=== PATIENT | male | born 1960 | race Caucasian/White ===

== ENCOUNTER 2016-12-01 09:12 | Inpatient (IN) | payer MEDICARE ==
[~2016-12-01] VITALS: Ht 172.7 cm; Wt 95.3 kg
[2016-12-01] MEDS ORDERED: ASPIRIN 325 MG TABLET PO ONE (09:45)
--- NOTE | 2016-12-01 10:01 | RAD ---
Portable AP chest. History: Chest pain Portable AP view was taken of the chest. Lungs are clear. Heart is normal in size. There is no effusion. Impression: 1. No acute chest disease.
[2016-12-01 10:11] LABS: BASO # 0.1 x10^3/uL (0.0-0.2); BASO % 1 % (0-3); EOS % 3 % (0-3); HEMATOCRIT 44.1 % (39.0-53.0); HEMOGLOBIN 15.3 g/dL (13.0-17.5); LYMPH # 2.4 x10^3/uL (1.0-4.8); LYMPH % 45 % (24-48); MEAN CORPUSCULAR HEMOGLOBIN 32 pg (25-35); MEAN CORPUSCULAR HGB CONC 35 g/dL (31-37); MEAN CORPUSCULAR VOLUME 92 fL (79-100); MONO % 10 % (0-9); NEUT % 41 % (31-73); PLATELET COUNT 217 x10^3/uL (140-400); RED BLOOD COUNT 4.78 x10^6/uL (4.30-5.70); RED CELL DISTRIBUTION WIDTH 13.6 % (11.5-14.5); WHITE BLOOD COUNT 5.3 x10^3/uL (4.0-11.0)
[2016-12-01 10:19] LABS: CALCIUM 8.6 mg/dL (8.5-10.1); GFR 77.3; POTASSIUM 4.4 mmol/L (3.5-5.1)
[2016-12-01 10:23] LABS: PROTHROMBIN TIME PATIENT 12.7 SEC (11.7-14.0)
[2016-12-01 10:25] LABS: ALBUMIN 4.1 g/dL (3.4-5.0); ALBUMIN/GLOBULIN RATIO 1.5 (1.0-1.7); MAGNESIUM 2.2 mg/dL (1.8-2.4); TOTAL BILIRUBIN 0.5 mg/dL (0.2-1.0); TOTAL PROTEIN 6.9 g/dL (6.4-8.2)
--- NOTE | 2016-12-01 10:42 | EKG ---
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
[2016-12-01] MEDS ORDERED: MORPHINE SULFATE 4 MG/ML DISP.SYRIN. IV PRN (11:00)
[2016-12-01] MEDS ORDERED: ONDANSETRON PF 4 MG/2 ML VIAL. IV PRN (11:00)
[2016-12-01] MEDS ORDERED: ACETAMINOPHEN 325 MG TABLET. PO PRN (11:00)
[2016-12-01] MEDS ORDERED: NITROGLYCERIN SUBLINGUAL 0.4 MG BOTTLE OF 25. SL PRN (11:00)
[2016-12-01] MEDS ORDERED: ASPI-630 PO (12:00)
[2016-12-01] MEDS ORDERED: METO25TA9 PO (12:00)
[2016-12-01] MEDS ORDERED: OMEG1CAP6 PO (12:00)
[2016-12-01] MEDS ORDERED: LISI-338 PO (12:00)
[2016-12-01] MEDS ORDERED: CRESTOR40 MG PO (12:00)
[2016-12-01] MEDS ORDERED: PNEUMOCOCCAL VAX SCREEN BY RX. MC ONE (13:30)
[2016-12-01 13:32] VITALS: BP 108/68
[2016-12-01] MEDS ORDERED: PNEUMOC CONJ VACC 23-VALENT 0.5 ML VIAL. VAX IM ONE (13:45)
--- NOTE | 2016-12-01 14:50 | PHYS DOC ---
Past Medical History Past Medical History: CHF, High Cholesterol, Heart Disease, Hypertension, MS Additional Past Medical Histor: CARDIAC STENT Past Surgical History: Angioplasty Additional Past Surgical Histo: L WRIST, R LEG Additional Information: E-CIGS Alcohol Use: None Drug Use: None Adult General Chief Complaint Chief Complaint: CHEST PAIN HPI HPI Patient is a 56 year old male who presents with chest pain. 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 He states pain is left sided, feels like tightness, nonradiating, associated with shortness of breath & nausea , denies diaphoresis. He denies fevers/chills, cough, lower extremity pain/ swelling. He reports history of CAD s/p MS with cardiac stent placement, states symptoms not similar as he had primarily severe dyspnea with MS. He takes metoprolol & has chronically low heart rate. He has history of diabetes & is a former smoker, history of CAD in mother & maternal grandparents. PCP is Dr. 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 Review of Systems Review of Systems Constitutional: Denies fever or chills Eyes: Denies change in visual acuity HENT: Denies nasal congestion or sore throat Respiratory: Denies cough, reports shortness of breath Cardiovascular: Reports chest pain, denies edema GI: Reports nausea. Denies abdominal pain, vomiting, bloody stools or diarrhea Musculoskeletal: Denies back pain or joint pain Integument: Denies rash or skin lesions Neurologic: Denies headache, focal weakness or sensory changes Current Medications Current Medications Current Medications Medications (Trade) Dose Ordered Sig/[facility] Start Time Stop Time Status Last Admin Dose Admin Aspirin (Ozzie Aspirin) 325 mg 1X ONCE 12/01/16 09:45 12/01/16 10:06 DC 12/01/16 10:08 325 MG Allergies Allergies Allergies Coded Allergies Type Severity Reaction Last Updated Verified No Known Drug Allergies 12/01/16 No Physical Exam Physical Exam Constitutional: Well developed, well nourished, no acute distress, non-toxic appearance. HENT: Normocephalic, atraumatic, bilateral external ears normal, oropharynx moist, nose normal. Eyes: conjunctiva normal, no discharge. Neck: supple, no stridor. Cardiovascular: RRR, no murmurs, no edema. Lungs & Thorax: LCTAB, no wheezing, no respiratory distress. no reproducible tenderness with palpation over anterior chest wall. Abdomen: soft, nontender, nondistended. Skin: Warm, dry, no erythema, no rash. Back: No tenderness. Extremities: No tenderness, no edema. no calf tenderness or swelling. Neurologic: Alert and oriented X 3, no focal deficits noted. Psychologic: Affect normal, judgement normal, mood normal. Current Patient Data Vital Signs Vital Signs Date Time Temp Pulse Resp B/P (MAP) Pulse Ox O2 Delivery O2 Flow Rate FiO2 12/01/16 10:30 46 18 114/71 (85) 96 Room Air 12/01/16 09:32 98.1 98.1 Lab Values Laboratory Tests Test 12/01/16 09:44 White Blood Count 5.3 x10^3/uL (4.0-11.0) Red Blood Count 4.78 x10^6/uL (4.30-5.70) Hemoglobin 15.3 g/dL (13.0-17.5) Hematocrit 44.1 % (39.0-53.0) Mean Corpuscular Volume 92 fL (79-100) Mean Corpuscular Hemoglobin 32 pg (25-35) Mean Corpuscular Hemoglobin Concent 35 g/dL (31-37) Red Cell Distribution Width 13.6 % (11.5-14.5) Platelet Count 217 x10^3/uL (140-400) Neutrophils (%) (Auto) 41 % (31-73) Lymphocytes (%) (Auto) 45 % (24-48) Monocytes (%) (Auto) 10 % (0-9) H Eosinophils (%) (Auto) 3 % (0-3) Basophils (%) (Auto) 1 % (0-3) Neutrophils # (Auto) 2.2 x10^3uL (1.8-7.7) Lymphocytes # (Auto) 2.4 x10^3/uL (1.0-4.8) Monocytes # (Auto) 0.5 x10^3/uL (0.0-1.1) Eosinophils # (Auto) 0.1 x10^3/uL (0.0-0.7) Basophils # (Auto) 0.1 x10^3/uL (0.0-0.2) Prothrombin Time 12.7 SEC (11.7-14.0) Prothrombin Time INR 1.0 (0.8-1.1) PTT 31 SEC (24-38) Sodium Level 140 mmol/L (136-145) Potassium Level 4.4 mmol/L (3.5-5.1) Chloride Level 104 mmol/L (98-107) Carbon Dioxide Level 30 mmol/L (21-32) Anion Gap 6 (6-14) Blood Urea Nitrogen 19 mg/dL (8-26) Creatinine 1.0 mg/dL (0.7-1.3) Estimated GFR (Cockcroft-Gault) 77.3 BUN/Creatinine Ratio 19 (6-20) Glucose Level 100 mg/dL (70-99) H Calcium Level 8.6 mg/dL (8.5-10.1) Magnesium Level 2.2 mg/dL (1.8-2.4) Total Bilirubin 0.5 mg/dL (0.2-1.0) Aspartate Amino Transferase (AST) 26 U/L (15-37) Alanine Aminotransferase (ALT) 39 U/L (16-63) Alkaline Phosphatase 68 U/L (46-116) Troponin I Quantitative 0.022 ng/mL (0.000-0.055) JE-Bam-L-Type Natriuretic Peptide 24 pg/mL (0-124) Total Protein 6.9 g/dL (6.4-8.2) Albumin 4.1 g/dL (3.4-5.0) Albumin/Globulin Ratio 1.5 (1.0-1.7) Laboratory Tests 12/01/16 09:44 Laboratory Tests 12/01/16 09:44 EKG EKG interpreted by me: sinus bradycardia rate 44, no STEMI, T wave inversions without depression in leads 1 & aVL, normal intervals, no ectopy.[] Radiology/Procedures Radiology/Procedures PROCEDURE: CHEST AP ONLY Portable AP chest. History: Chest pain Portable AP view was taken of the chest. Lungs are clear. Heart is normal in size. There is no effusion. Impression: 1. No acute chest disease. DICTATED and SIGNED BY: JANET MILLER MD DATE: 12/01/16 0958[] Course & Med Decision Making Course & Med Decision Making Pertinent Labs and Imaging studies reviewed. (See chart for details) The patient presents with chest pain. Gave aspirin upon arrival; he declined pain medication. Obtained labs, EKG, CXR. Troponin negative but not undetectable, no STEMI on EKG. With personal & family history of CAD with risk factors for ACS, will admit for further evaluation & treatment. He agrees with plan of care. Discussed with Dr. Naylor who agrees to admit to inpatient status , on behalf of Dr. Thompson. The patient is admitted in stable condition. Dragon Disclaimer Dragon Disclaimer This electronic medical record was generated, in whole or in part, using a voice recognition dictation system. Departure Departure Impression: Primary Impression: Chest pain Disposition: ADMITTED INPATIENT Admitting Physician: Merlyn Thompson Condition: STABLE Referrals: MERLYN THOMPSON MD (PCP) FUENTES CALABRESE MD Dec 01, 2016 14:50
[2016-12-01 15:00] VITALS: BP 99/65
[2016-12-01] MEDS ORDERED: HEPARIN 25,000UTS/500ML PREMIX 500 ML IV PRN (15:15)
--- NOTE | 2016-12-01 15:26 | PDOC2 ---
CONSULT Date of Consult Date of Consult DATE: 12/01/16 TIME: 15:20 Reason for Consult Reason for Consult: chest pain Referring Physician Referring Physician: Dr. Thompson Identification/Chief Complaint Chief Complaint chest pain Problems: Source Source: Patient History of Present Illness Reason for Visit: The patient is a 56-year-old male who developed episodes of chest discomfort this morning. It was described as a pressure-like feeling in his chest. It has improved since then. He does have a history of a previous myocardial infarction and stent placement. He is also treated for hypertension and hyperlipidemia. Initial troponin is 0.022. EKG shows a sinus bradycardia with no acute ischemic EKG changes. Chest x-ray is clear. Past Medical History Cardiovascular: CHF, HTN, MD Past Surgical History Past Surgical History: Other (coronary stent) Family History Family History: Coronary Artery Disease Social History No Current Medications Current Medications Current Medications Aspirin (Ozzie Aspirin) 325 mg 1X ONCE PO Last administered on 12/01/16t 10:08 ; Start 12/01/16 at 09:45; Stop 12/01/16 at 10:06; Status DC Ondansetron HCl (Zofran) 4 mg PRN Q8HRS PRN IV NAUSEA/VOMITING; Start 12/01/16 at 11:00; Stop 12/02/16 at 10:59 Morphine Sulfate 4 mg PRN Q2HR PRN IV PAIN; Start 12/01/16 at 11:00; Stop 12/02 at 10:59 Acetaminophen (Tylenol) 650 mg PRN Q4HRS PRN PO FEVER; Start 12/01/16 at 11:00 ; Stop 12/02/16 at 10:59 Nitroglycerin (Nitrostat) 0.4 mg PRN Q5MIN PRN SL CHEST PAIN; Start 12/01/16 at 11:00; Stop 12/02/16 at 10:59 Pneumococcal Polyvalent Vaccine (Do NOT chart on this placeholder) 1 each 1X ONCE MC ; Start 12/01/16 at 13:30; Stop 12/01/16 at 13:31; Status UNV Pneumococcal Polyvalent Vaccine (Pneumovax 23) 0.5 ml ONCE ONCE VAX IM ; Start 12/01/16 at 13:45; Stop 12/01/16 at 13:46; Status DC Active Scripts Active Reported Aspirin 81 Mg Tab.chew 81 Mg PO DAILY Fish Oil 1,000 Mg Capsule ([place]-3 Fatty Acids/Fish Oil) 1 Each Capsule 1 Each PO DAILY Metoprolol Succinate ( Xl ) (Metoprolol Succinate) 25 Mg Tab.er.24h 25 Mg PO DAILY Crestor (Rosuvastatin Calcium) 40 Mg Tablet 1 Tab PO DAILY Lisinopril 5 Mg Tablet 5 Mg PO DAILY Allergies Allergies: Coded Allergies: No Known Drug Allergies (Unverified , 12/01/16) ROS Cardiovascular: yes Chest Pain Physical Exam General: mild distress HEENT: Atraumatic Lungs: Clear to auscultation Heart: Regular rate Abdomen: Normal bowel sounds Vitals VITALS Vital Signs Date Time Temp Pulse Resp B/P (MAP) Pulse Ox O2 Delivery O2 Flow Rate FiO2 12/01/16 13:32 45 16 108/68 (81) Room Air 12/01/16 11:30 95 12/01/16 09:32 98.1 98.1 Labs Labs Laboratory Tests Test 12/01/16 09:44 White Blood Count 5.3 x10^3/uL (4.0-11.0) Red Blood Count 4.78 x10^6/uL (4.30-5.70) Hemoglobin 15.3 g/dL (13.0-17.5) Hematocrit 44.1 % (39.0-53.0) Mean Corpuscular Volume 92 fL (79-100) Mean Corpuscular Hemoglobin 32 pg (25-35) Mean Corpuscular Hemoglobin Concent 35 g/dL (31-37) Red Cell Distribution Width 13.6 % (11.5-14.5) Platelet Count 217 x10^3/uL (140-400) Neutrophils (%) (Auto) 41 % (31-73) Lymphocytes (%) (Auto) 45 % (24-48) Monocytes (%) (Auto) 10 % (0-9) Eosinophils (%) (Auto) 3 % (0-3) Basophils (%) (Auto) 1 % (0-3) Neutrophils # (Auto) 2.2 x10^3uL (1.8-7.7) Lymphocytes # (Auto) 2.4 x10^3/uL (1.0-4.8) Monocytes # (Auto) 0.5 x10^3/uL (0.0-1.1) Eosinophils # (Auto) 0.1 x10^3/uL (0.0-0.7) Basophils # (Auto) 0.1 x10^3/uL (0.0-0.2) Prothrombin Time 12.7 SEC (11.7-14.0) Prothromb Time International Ratio 1.0 (0.8-1.1) Activated Partial Thromboplast Time 31 SEC (24-38) Sodium Level 140 mmol/L (136-145) Potassium Level 4.4 mmol/L (3.5-5.1) Chloride Level 104 mmol/L (98-107) Carbon Dioxide Level 30 mmol/L (21-32) Anion Gap 6 (6-14) Blood Urea Nitrogen 19 mg/dL (8-26) Creatinine 1.0 mg/dL (0.7-1.3) Estimated GFR (Cockcroft-Gault) 77.3 BUN/Creatinine Ratio 19 (6-20) Glucose Level 100 mg/dL (70-99) Calcium Level 8.6 mg/dL (8.5-10.1) Magnesium Level 2.2 mg/dL (1.8-2.4) Total Bilirubin 0.5 mg/dL (0.2-1.0) Aspartate Amino Transf (AST/SGOT) 26 U/L (15-37) Alanine Aminotransferase (ALT/SGPT) 39 U/L (16-63) Alkaline Phosphatase 68 U/L (46-116) Troponin I Quantitative 0.022 ng/mL (0.000-0.055) NE-Hng-E-Type Natriuretic Peptide 24 pg/mL (0-124) Total Protein 6.9 g/dL (6.4-8.2) Albumin 4.1 g/dL (3.4-5.0) Albumin/Globulin Ratio 1.5 (1.0-1.7) Laboratory Tests Test 12/01/16 09:44 White Blood Count 5.3 x10^3/uL (4.0-11.0) Red Blood Count 4.78 x10^6/uL (4.30-5.70) Hemoglobin 15.3 g/dL (13.0-17.5) Hematocrit 44.1 % (39.0-53.0) Mean Corpuscular Volume 92 fL (79-100) Mean Corpuscular Hemoglobin 32 pg (25-35) Mean Corpuscular Hemoglobin Concent 35 g/dL (31-37) Red Cell Distribution Width 13.6 % (11.5-14.5) Platelet Count 217 x10^3/uL (140-400) Neutrophils (%) (Auto) 41 % (31-73) Lymphocytes (%) (Auto) 45 % (24-48) Monocytes (%) (Auto) 10 % (0-9) Eosinophils (%) (Auto) 3 % (0-3) Basophils (%) (Auto) 1 % (0-3) Neutrophils # (Auto) 2.2 x10^3uL (1.8-7.7) Lymphocytes # (Auto) 2.4 x10^3/uL (1.0-4.8) Monocytes # (Auto) 0.5 x10^3/uL (0.0-1.1) Eosinophils # (Auto) 0.1 x10^3/uL (0.0-0.7) Basophils # (Auto) 0.1 x10^3/uL (0.0-0.2) Prothrombin Time 12.7 SEC (11.7-14.0) Prothromb Time International Ratio 1.0 (0.8-1.1) Activated Partial Thromboplast Time 31 SEC (24-38) Sodium Level 140 mmol/L (136-145) Potassium Level 4.4 mmol/L (3.5-5.1) Chloride Level 104 mmol/L (98-107) Carbon Dioxide Level 30 mmol/L (21-32) Anion Gap 6 (6-14) Blood Urea Nitrogen 19 mg/dL (8-26) Creatinine 1.0 mg/dL (0.7-1.3) Estimated GFR (Cockcroft-Gault) 77.3 BUN/Creatinine Ratio 19 (6-20) Glucose Level 100 mg/dL (70-99) Calcium Level 8.6 mg/dL (8.5-10.1) Magnesium Level 2.2 mg/dL (1.8-2.4) Total Bilirubin 0.5 mg/dL (0.2-1.0) Aspartate Amino Transf (AST/SGOT) 26 U/L (15-37) Alanine Aminotransferase (ALT/SGPT) 39 U/L (16-63) Alkaline Phosphatase 68 U/L (46-116) Troponin I Quantitative 0.022 ng/mL (0.000-0.055) YW-Kks-E-Type Natriuretic Peptide 24 pg/mL (0-124) Total Protein 6.9 g/dL (6.4-8.2) Albumin 4.1 g/dL (3.4-5.0) Albumin/Globulin Ratio 1.5 (1.0-1.7) Images Images Chest x-ray with no acute changes. Assessment/Plan Assessment/Plan 1. Chest pain and a 56-year-old male with a history of previous myocardial infarction and coronary stenting. Initial troponin is 0.0-2. EKG shows no acute ischemic changes. However chest pain is of new onset. At this time would rule out myocardial infarction. We'll restart patient's home medications but decrease his metoprolol due to bradycardia. Will anticoagulate. Anticipate stress testing versus cardiac catheterization based on the patient's clinical course. 2. Mild bradycardia. We'll decrease the patient's beta blockers. 3. Hypertension. Under control. Will continue medications. 4. Hyperlipidemia. We'll continue statin medication. We'll check a lipid panel in the morning. Thank you for allowing us to participate in the care of your patient. WILD WILLIS MD Dec 01, 2016 15:26
[2016-12-01] MEDS ORDERED: METOPROLOL SUCC 24HR ER 25 MG TAB.ER.24H. PO SCH (16:00)
[2016-12-01] MEDS: ASPIRIN ENTERIC COATED 81 MG TABLET.DR. PO SCH (16:00)
[2016-12-01] MEDS ORDERED: LISINOPRIL 5 MG TABLET. PO SCH (16:00)
[2016-12-01] MEDS: HEPARIN for IV BOLUS 10,000 UNIT/10 ML VIAL. IV PRN ×2 (17:01→23:40)
--- NOTE | 2016-12-01 18:16 | EKG ---
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
[2016-12-01 19:15] VITALS: BP 114/65
[2016-12-01] MEDS ORDERED: ATORVASTATIN CALCIUM 40 MG TABLET. PO SCH (21:00)
[2016-12-01 23:15] VITALS: BP 102/62
[2016-12-02] MEDS ORDERED: ENOXAPARIN 40 MG/0.4 ML SYRINGE. SQ SCH
[2016-12-02] MEDS: TEMAZEPAM 15 MG CAPSULE PO PRN ×2 (00:18→21:42)
[2016-12-02 02:46] VITALS: BP 120/68
--- NOTE | 2016-12-02 03:03 | ACF ---
Admission Forms Criteria CARDIOLOGY GRG Clinical Indications for Admission to Inpatient Care ( Place 'X' for any and all applicable criteria): Hospital admission is needed for appropriate care of the patient because of ANY ONE of the following (1): [ ] I. Hemodynamic instability as indicated by ALL of the following (1)(2)(3) (4)(5) [ ]a) Vital signs or other findings not as expected for chronic patient condition or baseline [ ]b) Instability indicated by ANY ONE of the following: [ ]i) Hypotension [ ]ii) Symptomatic Tachycardia unresponsive to treatment ( e.g., analgesia, fluids, sedation as indicated) [ ]iii) Inadequate perfusion indicated by ANY ONE of the following: [ ] 1) Lactic acidosis (> 2 mmol/L) [ ] 2) New abnormal capillary refill (> 3 seconds) [ ] 3) Reduced urine output [ ] 4) New altered mental status [ ]iv) Orthostatic vital sign changes unresponsive to treatment (e.g., fluids) [ ]v) IV inotropic or vasopressor medication required to maintain adequate blood pressure or perfusion [ ] II. Severe heart failure as indicated by ANY ONE of the following(17)(18) [ ]a) Respiratory distress [ ]b) Hypotension [ ]c) Anasarca (refractory to outpatient therapy) [ ]d) Cardiac arrhythmias of immediate concern [ ]e) Myocardial ischemia [ ] III. Cardiac arrhythmias or findings of immediate concern indicated by ANY ONE of the following (19)(20): [ ] a) Heart rhythms that are inherently dangerous or unstable indicated by ANY ONE of the following (21)(22)(23): [ ] i) Resuscitated ventricular fibrillation or cardiac arrest [ ] ii) Ventricular escape rhythm [ ] iii) Sustained ventricular tachycardia (30 seconds or more of ventricular rhythm at greater than 100 beats per minute) [ ] iv) Nonsustained ventricular tachycardia and ANY ONE of the following: [ ] 1) Suspected cardiac ischemia as cause or consequence of ventricular tachycardia [ ] 2) In setting of acute myocarditis [ ] b) Unstable cardiac conduction defects indicated by ANY ONE of the following(23)(24)(25) [ ] i) Type II second-degree atrioventricular block [ ]ii) Third-degree atrioventricular block [ ]iii) New-onset left bundle branch block with suspected myocardial ischemia [ ]c) Any heart rhythm and ANY ONE of the following (21)(22)(26)(27) (28) [ ] i) Continuous long-term ECG monitoring needed (e.g., initiation of drug requiring monitoring for more than 24 hours) [ ] ii) Patient has automatic implanted cardioverter defibrillator that is repeatedly firing, malfunctioning, or in need of immediate adjustment of settings beyond the scope of ambulatory or observation care [ ]d) Heart rhythms of concern due to ANY ONE of the following: [ ] i) Hypotension [ ] ii) Respiratory distress [ ] iii) Association with other significant symptoms (e.g., bradycardia with syncope or ongoing dizziness, supraventricular tachycardia with chest pain (14)(15)(17) [ ] IV. Monitoring for cardiac contusion beyond the scope of observation care needed [A](30)(31)(32) [ ] V. Surgical or device complication (e.g., valve replacement complication , pacemaker dysfunction) (35)(41)(44)(45)(46) [ ] . Inpatient palliative care needed. [B](49) Also use Inpatient Palliative Care Criteria [ ] VII. Nonbacterial thrombotic (marantic) endocarditis (36)(43)(47)(48) [ X] VIII. Cardiology condition, symptom, or finding for which emergency and observation care has failed or are not considered appropriate. [ ] IX. Acute valvular disease requiring inpatient as indicated by ANY ONE of the following (41) [ ]a) Acute valvular regurgitation (42) [ ]b) Noninfectious valvulitis (43) [ ]c) Obstructive valve thrombosis [ ]d) Paravalvular leak [ ]e) Other significant valvular disorder remaining after emergency or observation level of care (as appropriate) [ ]X. Pericardial disease requiring inpatient treatment as indicated by ANY ONE of the following (33)(34)(35)(36)(37) [ ]a) Suspected tamponade (38)(39)(40) [ ]b) Hemopericardium [ ]c) Other significant pericardial disorder remaining after emergency or observation level of care (as appropriate) [ ] XI. Cardiac ischemia beyond scope of emergency and observation care. [ ] XII. Hypertension requiring inpatient treatment as indicated by ANY ONE of the following (6)(7)(8) [ ]a) SBP greater than 220 mm Hg or DBP greater than 120 mmHg despite treatment [ ]b) SBP greater than 140 mm Hg or DBP greater than 100 mm Hg with evidence of acute end organ damage as indicated by ANY ONE of the following [ ] i) Encephalopathy [ ] ii) Acute renal failure as indicated by new onset of ANY ONE of the following (9)(10)(11)(12)(13) [ ]1) 3-fold rise in serum creatinine from baseline [ ]2) Serum creatinine greater than 4 mg/dL ( 354 micromoles/L) with acute rise greater than 0.5 mg/dL (44.2 micromoles/L) [ ]3) Reduction of more than 75% in estimated glomerular filtration rate from baseline [ ]4) Estimated glomerular filtration rate less than 35 mL/min/1.73m2 (0.59 mL/sec/1.73m2) in child up to 18 years of age [ ]5) Cessation of urine output indicated by ALL of the following [ ]A. Adequate volume status [ ]B. Inadequate urine output as indicated by ANY ONE of the following [ ]a. Urine output less than 0.3 mL/kg/hr for 24 hours [ ]b. Anuria (urine output less than 0.1 mL/kg/hr) for 12 hours [ ] iii) Aortic dissection [ ] iv) Myocardial Ischemia [ ] v) Left ventricular heart failure [ ]vi) Retinal Hemorrhage [ ]vii) Other significant finding [ ]c) Hypertension in child requiring inpatient treatment as indicated by ALL of the following(14)(15)(16) [ ] i) Outpatient treatment not effective, not available, or not appropriate [ ]ii) SBP or DBP greater than 95th percentile for age [ ]iii) Evidence of acute end organ damage as indicated by ANY ONE of the following [ ]1) Altered mental status [ ]2) Acute renal failure as indicated by new onset of ANY ONE of the following(9)(10)(11)(12)(13) [ ]A. 3-fold rise in serum creatinine from baseline [ ]B. Serum creatinine greater than 4 mg/dL (354 micromoles/L) with acute rise greater than 0.5 mg/dL (44.2 micromoles/L) [ ]C. Reduction of more than 75% in estimated glomerular filtration rate from baseline [ ]D. Estimated glomerular filtration rate less than 35 mL/min/1.73m2 (0.59 mL/sec/1.73m2) in child up to 18 years of age [ ]E. Cessation of urine output indicated by ALL of the following [ ]a. Adequate volume status [ ]b. Inadequate urine output as indicated by ANY ONE of the following [ ]i) Urine output less than 0.3 mL/kg/hr for 24 hours [ ]ii) Anuria ( urine output less than 0.1 mL/kg/hr) for 12 hours [ ]3) Severe headache [ ]4) Visual disturbance [ ]5) Retinal hemorrhage [ ]6) Other significant finding [ ]XIII. Complications of transplanted heart indicated by ANY ONE of the following(61): [ ]a) Acute graft rejection requiring inpatient management (eg, intravenous immunosuppression)(62)(63) [ ]b) Acute graft heart failure indicated by ANY ONE of the following(64): [ ]i) Hemodynamic instability [ ]ii) Cardiac arrhythmias of immediate concern [ ]iii) Pulmonary edema that is very severe (eg, mechanical ventilation needed, imminent or likely, need for 100% oxygen to keep oxygen saturation above 90%) [ ]iv) Pulmonary edema that is persistent as indicated by ALL of the following: [ ]1) New need for oxygen therapy to keep oxygen saturation above 90% (or increased FiO2 need from baseline) [ ]2) Has not improved sufficiently with emergency department or observation care IV diuretics or other heart failure treatments[E] [ ]v) Altered mental status that is severe or persistent [ ]vi) Increased creatinine (new on laboratory test) with reduction of more than 50% in estimated glomerular filtration rate from baseline [ ]vii) Progressively (ongoing) rising creatinine (known from past laboratory test) with reduction of more than 25% in estimated glomerular filtration rate from baseline [ ]viii) Acute renal failure [ ]ix) Acute peripheral ischemia (eg, examination shows pulseless, cool, mottled, or cyanotic extremity) [ ]x) Pulmonary artery catheter monitoring needed [ ]xi) Other sign or symptom of heart failure requiring inpatient treatment (ie, too severe or not responsive to outpatient and observation care treatment) [ ]c) Infection requiring inpatient management (eg, Hemodynamic instability, need for intravenous antimicrobial treatment)(66)(67)(68)(69)(70) [ ]d) Cardiac allograft vasculopathy requiring inpatient management ( eg evidence of cardiac ischemia)(71) [ ]e) Other complication of transplanted heart (eg, stroke, severe pulmonary hypertension, severe valvular dysfunction) requiring inpatient management(72) The original [facility] content created by [facility] has been revised. The portions of the content which have been revised are identified through the use of italic text or in bold, and [facility] has neither reviewed nor approved the modified material. All other unmodified content is copyright [facility]. Please see references footnoted in the original [facility] edition 2016 Admission Criteria Met?: Yes LYNN ANDERSON Dec 02, 2016 03:03
[2016-12-02 07:00] VITALS: BP 113/66
[2016-12-02] MEDS: ASPIRIN ENTERIC COATED 81 MG TABLET.DR. PO SCH (08:00)
[2016-12-02 08:05] LABS: BASO % 1 % (0-3); EOS % 3 % (0-3); HEMATOCRIT 43.6 % (39.0-53.0); HEMOGLOBIN 15.1 g/dL (13.0-17.5); LYMPH # 2.5 x10^3/uL (1.0-4.8); LYMPH % 50 % (24-48); MEAN CORPUSCULAR HEMOGLOBIN 32 pg (25-35); MEAN CORPUSCULAR HGB CONC 35 g/dL (31-37); MEAN CORPUSCULAR VOLUME 92 fL (79-100); MONO % 8 % (0-9); NEUT % 39 % (31-73); PLATELET COUNT 203 x10^3/uL (140-400); RED BLOOD COUNT 4.74 x10^6/uL (4.30-5.70); RED CELL DISTRIBUTION WIDTH 13.6 % (11.5-14.5)
[2016-12-02 08:08] LABS: CHOLESTEROL/HDL RATIO 4.2
[2016-12-02] MEDS ORDERED: ANTI-COAG MONITOR BY PHARMACY. MC PRN (09:00)
[2016-12-02] MEDS: OMEGA-3 FATTY ACIDS/FISH OIL 1,000 MG CAPSULE. PO SCH (09:00)
[2016-12-02] MEDS: LISINOPRIL 5 MG TABLET. PO SCH (09:00)
[2016-12-02] MEDS: METOPROLOL SUCC 24HR ER 25 MG TAB.ER.24H. PO SCH (09:00)
[2016-12-02] MEDS ORDERED: ASPIRIN CHEWABLE 81 MG TABLET. PO SCH (09:00)
[2016-12-02 09:11] LABS: ALBUMIN 3.7 g/dL (3.4-5.0); ALBUMIN/GLOBULIN RATIO 1.2 (1.0-1.7); CALCIUM 8.2 mg/dL (8.5-10.1); GFR 77.3; POTASSIUM 4.3 mmol/L (3.5-5.1); TOTAL BILIRUBIN 0.3 mg/dL (0.2-1.0); TOTAL PROTEIN 6.7 g/dL (6.4-8.2)
[2016-12-02 11:00] VITALS: BP 110/76
--- NOTE | 2016-12-02 11:08 | PDOC1 ---
History and Physical Date of Admission Date of Admission DATE: 12/02/16 TIME: 11:00 Identification/Chief Complaint Chief Complaint Chest pain Problems: Source Source: Chart review, Patient History of Present Illness History of Present Illness Patient comes in with new-onset chest pain. This pain lasted over an hour. Patient described his chest symptoms as chest tightness. Patient denies radiation to neck shoulder or back. Patient denies shortness of breath. Patient has had intermittent nausea. Patient denies diaphoresis. Patient was seen in ER with negative initial evaluation. Negative EKG and troponins. Case was discussed with cardiology and due to bradycardia noted during early hospitalization and patient's prior history of UT and stenting it was felt that cardiac catheterization was indicated rather than stress testing due to higher risk. Past Medical History Cardiovascular: CHF, HTN, UT Past Surgical History Past Surgical History: Tonsillectomy, Other (coronary stent) Family History Family History Patient's father has prostate cancer and is alive. Patient's mother is with company since of congestive heart failure type 2 diabetes and chronic kidney disease. Family History: Coronary Artery Disease, Diabetes, Kidney Disease Family History: Parent Social History Smoke: # pack years (30) ALCOHOL: none Drugs: None Current Problem List Problem List Chest pain Coronary artery disease hypertension History of UT with stent History of CHF Problems: Current Medications Current Medications Current Medications Aspirin (Ozzie Aspirin) 325 mg 1X ONCE PO Last administered on 12/01/16t 10:08 ; Start 12/01/16 at 09:45; Stop 12/01/16 at 10:06; Status DC Ondansetron HCl (Zofran) 4 mg PRN Q8HRS PRN IV NAUSEA/VOMITING; Start 12/01/16 at 11:00; Stop 12/02/16 at 10:59; Status DC Morphine Sulfate 4 mg PRN Q2HR PRN IV PAIN; Start 12/01/16 at 11:00; Stop 12/02 at 10:59; Status DC Acetaminophen (Tylenol) 650 mg PRN Q4HRS PRN PO FEVER; Start 12/01/16 at 11:00 ; Stop 12/02/16 at 10:59; Status DC Nitroglycerin (Nitrostat) 0.4 mg PRN Q5MIN PRN SL CHEST PAIN; Start 12/01/16 at 11:00; Stop 12/02/16 at 10:59; Status DC Pneumococcal Polyvalent Vaccine (Do NOT chart on this placeholder) 1 each 1X ONCE MC ; Start 12/01/16 at 13:30; Stop 12/01/16 at 13:31; Status UNV Pneumococcal Polyvalent Vaccine (Pneumovax 23) 0.5 ml ONCE ONCE VAX IM ; Start 12/01/16 at 13:45; Stop 12/01/16 at 13:46; Status DC Atorvastatin Calcium (Lipitor) 40 mg QHS PO ; Start 12/01/16 at 21:00; Stop at 00:04; Status DC Lisinopril (Prinivil) 5 mg DAILY PO ; Start 12/01/16 at 16:00; Stop 12/02/16 at 00:04; Status DC Aspirin (Ecotrin) 81 mg DAILYWBKFT PO ; Start 12/01/16 at 16:00 Metoprolol Succinate (Toprol Xl) 12.5 mg DAILY PO ; Start 12/01/16 at 16:00; Stop 12/02/16 at 00:05; Status DC Heparin Sodium/ Dextrose 500 ml @ 20 mls/hr CONT PRN IV SEE I/O RECORD Last administered on 12/01/16 16:59; Start 12/01/16 at 15:15 Heparin Sodium (Porcine) (Heparin Sodium) 2,400 unit PRN Q6HRS PRN IV FOR UFH LEVEL LESS THAN 0.2 Last administered on 12/01/16t 23:40; Start 12/01/16 at 15: 15 Aspirin (Children'S Aspirin) 81 mg DAILY PO ; Start 12/02/16 at 09:00; Stop at 09:00; Status DC Lisinopril (Prinivil) 5 mg DAILY PO ; Start 12/02/16 at 09:00 Metoprolol Succinate (Toprol Xl) 25 mg DAILY PO ; Start 12/02/16 at 09:00 Fish Oil (Fish Oil) 1,000 mg DAILY PO ; Start 12/02/16 at 09:00 Atorvastatin Calcium (Lipitor) 80 mg HS PO ; Start 12/02/16 at 21:00 Enoxaparin Sodium (Lovenox 40mg Syringe) 40 mg Q24H SQ ; Start 12/02/16 at 00:00 ; Status UNV Temazepam (Restoril) 15 mg PRN QHS PRN PO INSOMNIA Last administered on 00:18; Start 12/02/16 at 00:15 Info (Anti-Coagulation Monitoring By Pharmacy) 1 each PRN DAILY PRN MC SEE COMMENTS Last administered on 12/02/16 08:59; Start 12/02/16 at 09:00 Active Scripts Active Reported Aspirin 81 Mg Tab.chew 81 Mg PO DAILY Fish Oil 1,000 Mg Capsule ([place]-3 Fatty Acids/Fish Oil) 1 Each Capsule 1 Each PO DAILY Metoprolol Succinate ( Xl ) (Metoprolol Succinate) 25 Mg Tab.er.24h 25 Mg PO DAILY Crestor (Rosuvastatin Calcium) 40 Mg Tablet 1 Tab PO DAILY Lisinopril 5 Mg Tablet 5 Mg PO DAILY Allergies Allergies: Coded Allergies: No Known Drug Allergies (Unverified , 12/01/16) ROS Review of System Patient denies recent illness nausea vomiting. Shortness of breath cough fever or significant pain at this time Physical Exam General: Alert, Oriented X3, Cooperative, No acute distress HEENT: PERRLA Lungs: Clear to auscultation, Normal air movement Breasts: Normal, Rt breast nml w/o mass, Lt breast nml w/o mass, Nipples normal Abdomen: Normal bowel sounds, Soft, No tenderness, No hepatosplenomegaly, No masses Extremities: No clubbing, No cyanosis, No edema, Normal pulses, No tenderness/ swelling Vitals Vitals Vital Signs Date Time Temp Pulse Resp B/P (MAP) Pulse Ox O2 Delivery O2 Flow Rate FiO2 12/02/16 09:00 43 12/02/16 07:39 Room Air 12/02/16 07:00 98.0 16 113/66 (82) 97 98.0 Labs Labs Laboratory Tests Test 12/01/16 09:44 12/01/16 16:55 12/01/16 22:45 12/02/16 06:50 White Blood Count 5.3 x10^3/uL (4.0-11.0) 5.0 x10^3/uL (4.0-11.0) Red Blood Count 4.78 x10^6/uL (4.30-5.70) 4.74 x10^6/uL (4.30-5.70) Hemoglobin 15.3 g/dL (13.0-17.5) 15.1 g/dL (13.0-17.5) Hematocrit 44.1 % (39.0-53.0) 43.6 % (39.0-53.0) Mean Corpuscular Volume 92 fL (79-100) 92 fL (79-100) Mean Corpuscular Hemoglobin 32 pg (25-35) 32 pg (25-35) Mean Corpuscular Hemoglobin Concent 35 g/dL (31-37) 35 g/dL (31-37) Red Cell Distribution Width 13.6 % (11.5-14.5) 13.6 % (11.5-14.5) Platelet Count 217 x10^3/uL (140-400) 203 x10^3/uL (140-400) Neutrophils (%) (Auto) 41 % (31-73) 39 % (31-73) Lymphocytes (%) (Auto) 45 % (24-48) 50 % (24-48) Monocytes (%) (Auto) 10 % (0-9) 8 % (0-9) Eosinophils (%) (Auto) 3 % (0-3) 3 % (0-3) Basophils (%) (Auto) 1 % (0-3) 1 % (0-3) Neutrophils # (Auto) 2.2 x10^3uL (1.8-7.7) 1.9 x10^3uL (1.8-7.7) Lymphocytes # (Auto) 2.4 x10^3/uL (1.0-4.8) 2.5 x10^3/uL (1.0-4.8) Monocytes # (Auto) 0.5 x10^3/uL (0.0-1.1) 0.4 x10^3/uL (0.0-1.1) Eosinophils # (Auto) 0.1 x10^3/uL (0.0-0.7) 0.2 x10^3/uL (0.0-0.7) Basophils # (Auto) 0.1 x10^3/uL (0.0-0.2) 0.0 x10^3/uL (0.0-0.2) Prothrombin Time 12.7 SEC (11.7-14.0) Prothromb Time International Ratio 1.0 (0.8-1.1) Activated Partial Thromboplast Time 31 SEC (24-38) Sodium Level 140 mmol/L (136-145) 143 mmol/L (136-145) Potassium Level 4.4 mmol/L (3.5-5.1) 4.3 mmol/L (3.5-5.1) Chloride Level 104 mmol/L (98-107) 108 mmol/L (98-107) Carbon Dioxide Level 30 mmol/L (21-32) 25 mmol/L (21-32) Anion Gap 6 (6-14) 10 (6-14) Blood Urea Nitrogen 19 mg/dL (8-26) 18 mg/dL (8-26) Creatinine 1.0 mg/dL (0.7-1.3) 1.0 mg/dL (0.7-1.3) Estimated GFR (Cockcroft-Gault) 77.3 77.3 BUN/Creatinine Ratio 19 (6-20) 18 (6-20) Glucose Level 100 mg/dL (70-99) 99 mg/dL (70-99) Calcium Level 8.6 mg/dL (8.5-10.1) 8.2 mg/dL (8.5-10.1) Magnesium Level 2.2 mg/dL (1.8-2.4) Total Bilirubin 0.5 mg/dL (0.2-1.0) 0.3 mg/dL (0.2-1.0) Aspartate Amino Transf (AST/SGOT) 26 U/L (15-37) 22 U/L (15-37) Alanine Aminotransferase (ALT/SGPT) 39 U/L (16-63) 36 U/L (16-63) Alkaline Phosphatase 68 U/L (46-116) 67 U/L (46-116) Troponin I Quantitative 0.022 ng/mL (0.000-0.055) < 0.017 ng/mL (0.000-0.055) < 0.017 ng/mL (0.000-0.055) < 0.017 ng/mL (0.000-0.055) RI-Ijp-O-Type Natriuretic Peptide 24 pg/mL (0-124) Total Protein 6.9 g/dL (6.4-8.2) 6.7 g/dL (6.4-8.2) Albumin 4.1 g/dL (3.4-5.0) 3.7 g/dL (3.4-5.0) Albumin/Globulin Ratio 1.5 (1.0-1.7) 1.2 (1.0-1.7) Heparin Anti-Xa Act, Unfractionated 0.14 IU/mL (0.30-0.70) 0.49 IU/mL (0.30-0.70) Triglycerides Level 117 mg/dL (0-150) Cholesterol Level 164 mg/dL (0-200) LDL Cholesterol, Calculated 102 mg/dL (0-100) VLDL Cholesterol, Calculated 23 mg/dL (0-40) Non-HDL Cholesterol Calculated 125 mg/dL (0-129) HDL Cholesterol 39 mg/dL (40-60) Cholesterol/HDL Ratio 4.2 Laboratory Tests Test 12/01/16 16:55 12/01/16 22:45 12/02/16 06:50 Troponin I Quantitative < 0.017 ng/mL (0.000-0.055) < 0.017 ng/mL (0.000-0.055) < 0.017 ng/mL (0.000-0.055) Heparin Anti-Xa Act, Unfractionated 0.14 IU/mL (0.30-0.70) 0.49 IU/mL (0.30-0.70) White Blood Count 5.0 x10^3/uL (4.0-11.0) Red Blood Count 4.74 x10^6/uL (4.30-5.70) Hemoglobin 15.1 g/dL (13.0-17.5) Hematocrit 43.6 % (39.0-53.0) Mean Corpuscular Volume 92 fL (79-100) Mean Corpuscular Hemoglobin 32 pg (25-35) Mean Corpuscular Hemoglobin Concent 35 g/dL (31-37) Red Cell Distribution Width 13.6 % (11.5-14.5) Platelet Count 203 x10^3/uL (140-400) Neutrophils (%) (Auto) 39 % (31-73) Lymphocytes (%) (Auto) 50 % (24-48) Monocytes (%) (Auto) 8 % (0-9) Eosinophils (%) (Auto) 3 % (0-3) Basophils (%) (Auto) 1 % (0-3) Neutrophils # (Auto) 1.9 x10^3uL (1.8-7.7) Lymphocytes # (Auto) 2.5 x10^3/uL (1.0-4.8) Monocytes # (Auto) 0.4 x10^3/uL (0.0-1.1) Eosinophils # (Auto) 0.2 x10^3/uL (0.0-0.7) Basophils # (Auto) 0.0 x10^3/uL (0.0-0.2) Sodium Level 143 mmol/L (136-145) Potassium Level 4.3 mmol/L (3.5-5.1) Chloride Level 108 mmol/L (98-107) Carbon Dioxide Level 25 mmol/L (21-32) Anion Gap 10 (6-14) Blood Urea Nitrogen 18 mg/dL (8-26) Creatinine 1.0 mg/dL (0.7-1.3) Estimated GFR (Cockcroft-Gault) 77.3 BUN/Creatinine Ratio 18 (6-20) Glucose Level 99 mg/dL (70-99) Calcium Level 8.2 mg/dL (8.5-10.1) Total Bilirubin 0.3 mg/dL (0.2-1.0) Aspartate Amino Transf (AST/SGOT) 22 U/L (15-37) Alanine Aminotransferase (ALT/SGPT) 36 U/L (16-63) Alkaline Phosphatase 67 U/L (46-116) Total Protein 6.7 g/dL (6.4-8.2) Albumin 3.7 g/dL (3.4-5.0) Albumin/Globulin Ratio 1.2 (1.0-1.7) Triglycerides Level 117 mg/dL (0-150) Cholesterol Level 164 mg/dL (0-200) LDL Cholesterol, Calculated 102 mg/dL (0-100) VLDL Cholesterol, Calculated 23 mg/dL (0-40) Non-HDL Cholesterol Calculated 125 mg/dL (0-129) HDL Cholesterol 39 mg/dL (40-60) Cholesterol/HDL Ratio 4.2 VTE Prophylaxis Ordered VTE Prophylaxis Devices: Yes VTE Pharmacological Prophylaxi: Yes Assessment/Plan Assessment/Plan Assessment: Atypical chest pain Coronary artery disease Bradycardia Plan: Continue telemetry monitoring Decrease or discontinue beta tawanna Proceed with cardiac catheterization KANDIS BOLAÑOS MD Dec 02, 2016 11:08
--- NOTE | 2016-12-02 11:32 | EKG ---
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
--- NOTE | 2016-12-02 14:23 | PDOC ---
PROGRESS NOTES Subjective Subjective The patient is feeling better today. Chest discomfort has resolved. Objective Objective Vital Signs Date Time Temp Pulse Resp B/P (MAP) Pulse Ox O2 Delivery O2 Flow Rate FiO2 12/02/16 11:00 98.1 62 18 110/76 (87) 95 Room Air 98.1 Intake and Output 12/02/16 07:00 Intake Total 1307 ml Balance 1307 ml Intake Oral 1000 ml IV Total 307 ml # Voids 1 Physical Exam Abdomen: Normal bowel sounds Heart: Other (regular rhythm with a rate of 50) Extremities: No clubbing General: Alert Lungs: Clear to auscultation Assessment Assessment Assessment/Plan 1. Chest pain and a 56-year-old male with a history of previous myocardial infarction and coronary stenting. Initial troponin is 0.0-2. EKG shows no acute ischemic changes. However chest pain is of new onset. Pain has resolved today. Cardiac enzymes negative. Discussed various options for patient and his family. Have recommended cardiac catheterization tomorrow. Risks and benefits discussed. Patient has agreed to proceed with catheterization. 2. Mild bradycardia,. We'll decrease the patient's beta blockers. 3. Hypertension. Under control. Will continue medications. 4. Hyperlipidemia. We'll continue statin medication. Comment Review of Relevant I have reviewed the following items juanjo (where applicable) has been applied. Labs Laboratory Tests Test 12/01/16 09:44 12/01/16 16:55 12/01/16 22:45 12/02/16 06:50 White Blood Count 5.3 x10^3/uL (4.0-11.0) 5.0 x10^3/uL (4.0-11.0) Red Blood Count 4.78 x10^6/uL (4.30-5.70) 4.74 x10^6/uL (4.30-5.70) Hemoglobin 15.3 g/dL (13.0-17.5) 15.1 g/dL (13.0-17.5) Hematocrit 44.1 % (39.0-53.0) 43.6 % (39.0-53.0) Mean Corpuscular Volume 92 fL (79-100) 92 fL (79-100) Mean Corpuscular Hemoglobin 32 pg (25-35) 32 pg (25-35) Mean Corpuscular Hemoglobin Concent 35 g/dL (31-37) 35 g/dL (31-37) Red Cell Distribution Width 13.6 % (11.5-14.5) 13.6 % (11.5-14.5) Platelet Count 217 x10^3/uL (140-400) 203 x10^3/uL (140-400) Neutrophils (%) (Auto) 41 % (31-73) 39 % (31-73) Lymphocytes (%) (Auto) 45 % (24-48) 50 % (24-48) Monocytes (%) (Auto) 10 % (0-9) 8 % (0-9) Eosinophils (%) (Auto) 3 % (0-3) 3 % (0-3) Basophils (%) (Auto) 1 % (0-3) 1 % (0-3) Neutrophils # (Auto) 2.2 x10^3uL (1.8-7.7) 1.9 x10^3uL (1.8-7.7) Lymphocytes # (Auto) 2.4 x10^3/uL (1.0-4.8) 2.5 x10^3/uL (1.0-4.8) Monocytes # (Auto) 0.5 x10^3/uL (0.0-1.1) 0.4 x10^3/uL (0.0-1.1) Eosinophils # (Auto) 0.1 x10^3/uL (0.0-0.7) 0.2 x10^3/uL (0.0-0.7) Basophils # (Auto) 0.1 x10^3/uL (0.0-0.2) 0.0 x10^3/uL (0.0-0.2) Prothrombin Time 12.7 SEC (11.7-14.0) Prothromb Time International Ratio 1.0 (0.8-1.1) Activated Partial Thromboplast Time 31 SEC (24-38) Sodium Level 140 mmol/L (136-145) 143 mmol/L (136-145) Potassium Level 4.4 mmol/L (3.5-5.1) 4.3 mmol/L (3.5-5.1) Chloride Level 104 mmol/L (98-107) 108 mmol/L (98-107) Carbon Dioxide Level 30 mmol/L (21-32) 25 mmol/L (21-32) Anion Gap 6 (6-14) 10 (6-14) Blood Urea Nitrogen 19 mg/dL (8-26) 18 mg/dL (8-26) Creatinine 1.0 mg/dL (0.7-1.3) 1.0 mg/dL (0.7-1.3) Estimated GFR (Cockcroft-Gault) 77.3 77.3 BUN/Creatinine Ratio 19 (6-20) 18 (6-20) Glucose Level 100 mg/dL (70-99) 99 mg/dL (70-99) Calcium Level 8.6 mg/dL (8.5-10.1) 8.2 mg/dL (8.5-10.1) Magnesium Level 2.2 mg/dL (1.8-2.4) Total Bilirubin 0.5 mg/dL (0.2-1.0) 0.3 mg/dL (0.2-1.0) Aspartate Amino Transf (AST/SGOT) 26 U/L (15-37) 22 U/L (15-37) Alanine Aminotransferase (ALT/SGPT) 39 U/L (16-63) 36 U/L (16-63) Alkaline Phosphatase 68 U/L (46-116) 67 U/L (46-116) Troponin I Quantitative 0.022 ng/mL (0.000-0.055) < 0.017 ng/mL (0.000-0.055) < 0.017 ng/mL (0.000-0.055) < 0.017 ng/mL (0.000-0.055) YT-Nlo-X-Type Natriuretic Peptide 24 pg/mL (0-124) Total Protein 6.9 g/dL (6.4-8.2) 6.7 g/dL (6.4-8.2) Albumin 4.1 g/dL (3.4-5.0) 3.7 g/dL (3.4-5.0) Albumin/Globulin Ratio 1.5 (1.0-1.7) 1.2 (1.0-1.7) Heparin Anti-Xa Act, Unfractionated 0.14 IU/mL (0.30-0.70) 0.49 IU/mL (0.30-0.70) Triglycerides Level 117 mg/dL (0-150) Cholesterol Level 164 mg/dL (0-200) LDL Cholesterol, Calculated 102 mg/dL (0-100) VLDL Cholesterol, Calculated 23 mg/dL (0-40) Non-HDL Cholesterol Calculated 125 mg/dL (0-129) HDL Cholesterol 39 mg/dL (40-60) Cholesterol/HDL Ratio 4.2 Laboratory Tests Test 12/01/16 16:55 12/01/16 22:45 12/02/16 06:50 Troponin I Quantitative < 0.017 ng/mL (0.000-0.055) < 0.017 ng/mL (0.000-0.055) < 0.017 ng/mL (0.000-0.055) Heparin Anti-Xa Act, Unfractionated 0.14 IU/mL (0.30-0.70) 0.49 IU/mL (0.30-0.70) White Blood Count 5.0 x10^3/uL (4.0-11.0) Red Blood Count 4.74 x10^6/uL (4.30-5.70) Hemoglobin 15.1 g/dL (13.0-17.5) Hematocrit 43.6 % (39.0-53.0) Mean Corpuscular Volume 92 fL (79-100) Mean Corpuscular Hemoglobin 32 pg (25-35) Mean Corpuscular Hemoglobin Concent 35 g/dL (31-37) Red Cell Distribution Width 13.6 % (11.5-14.5) Platelet Count 203 x10^3/uL (140-400) Neutrophils (%) (Auto) 39 % (31-73) Lymphocytes (%) (Auto) 50 % (24-48) Monocytes (%) (Auto) 8 % (0-9) Eosinophils (%) (Auto) 3 % (0-3) Basophils (%) (Auto) 1 % (0-3) Neutrophils # (Auto) 1.9 x10^3uL (1.8-7.7) Lymphocytes # (Auto) 2.5 x10^3/uL (1.0-4.8) Monocytes # (Auto) 0.4 x10^3/uL (0.0-1.1) Eosinophils # (Auto) 0.2 x10^3/uL (0.0-0.7) Basophils # (Auto) 0.0 x10^3/uL (0.0-0.2) Sodium Level 143 mmol/L (136-145) Potassium Level 4.3 mmol/L (3.5-5.1) Chloride Level 108 mmol/L (98-107) Carbon Dioxide Level 25 mmol/L (21-32) Anion Gap 10 (6-14) Blood Urea Nitrogen 18 mg/dL (8-26) Creatinine 1.0 mg/dL (0.7-1.3) Estimated GFR (Cockcroft-Gault) 77.3 BUN/Creatinine Ratio 18 (6-20) Glucose Level 99 mg/dL (70-99) Calcium Level 8.2 mg/dL (8.5-10.1) Total Bilirubin 0.3 mg/dL (0.2-1.0) Aspartate Amino Transf (AST/SGOT) 22 U/L (15-37) Alanine Aminotransferase (ALT/SGPT) 36 U/L (16-63) Alkaline Phosphatase 67 U/L (46-116) Total Protein 6.7 g/dL (6.4-8.2) Albumin 3.7 g/dL (3.4-5.0) Albumin/Globulin Ratio 1.2 (1.0-1.7) Triglycerides Level 117 mg/dL (0-150) Cholesterol Level 164 mg/dL (0-200) LDL Cholesterol, Calculated 102 mg/dL (0-100) VLDL Cholesterol, Calculated 23 mg/dL (0-40) Non-HDL Cholesterol Calculated 125 mg/dL (0-129) HDL Cholesterol 39 mg/dL (40-60) Cholesterol/HDL Ratio 4.2 Medications Current Medications Aspirin (Ozzie Aspirin) 325 mg 1X ONCE PO Last administered on 12/01/16t 10:08 ; Start 12/01/16 at 09:45; Stop 12/01/16 at 10:06; Status DC Ondansetron HCl (Zofran) 4 mg PRN Q8HRS PRN IV NAUSEA/VOMITING; Start 12/01/16 at 11:00; Stop 12/02/16 at 10:59; Status DC Morphine Sulfate 4 mg PRN Q2HR PRN IV PAIN; Start 12/01/16 at 11:00; Stop 12/02 at 10:59; Status DC Acetaminophen (Tylenol) 650 mg PRN Q4HRS PRN PO FEVER; Start 12/01/16 at 11:00 ; Stop 12/02/16 at 10:59; Status DC Nitroglycerin (Nitrostat) 0.4 mg PRN Q5MIN PRN SL CHEST PAIN; Start 12/01/16 at 11:00; Stop 12/02/16 at 10:59; Status DC Pneumococcal Polyvalent Vaccine (Do NOT chart on this placeholder) 1 each 1X ONCE MC ; Start 12/01/16 at 13:30; Stop 12/01/16 at 13:31; Status UNV Pneumococcal Polyvalent Vaccine (Pneumovax 23) 0.5 ml ONCE ONCE VAX IM ; Start 12/01/16 at 13:45; Stop 12/01/16 at 13:46; Status DC Atorvastatin Calcium (Lipitor) 40 mg QHS PO ; Start 12/01/16 at 21:00; Stop at 00:04; Status DC Lisinopril (Prinivil) 5 mg DAILY PO ; Start 12/01/16 at 16:00; Stop 12/02/16 at 00:04; Status DC Aspirin (Ecotrin) 81 mg DAILYWBKFT PO Last administered on 12/02/16 08:00; Start 12/01/16 at 16:00 Metoprolol Succinate (Toprol Xl) 12.5 mg DAILY PO ; Start 12/01/16 at 16:00; Stop 12/02/16 at 00:05; Status DC Heparin Sodium/ Dextrose 500 ml @ 20 mls/hr CONT PRN IV SEE I/O RECORD Last administered on 12/01/16 16:59; Start 12/01/16 at 15:15; Stop 12/02/16 at 12:00 ; Status DC Heparin Sodium (Porcine) (Heparin Sodium) 2,400 unit PRN Q6HRS PRN IV FOR UFH LEVEL LESS THAN 0.2 Last administered on 12/01/16 23:40; Start 12/01/16 at 15: 15; Stop 12/02/16 at 12:02; Status DC Aspirin (Children'S Aspirin) 81 mg DAILY PO ; Start 12/02/16 at 09:00; Stop at 09:00; Status DC Lisinopril (Prinivil) 5 mg DAILY PO ; Start 12/02/16 at 09:00 Metoprolol Succinate (Toprol Xl) 25 mg DAILY PO ; Start 12/02/16 at 09:00 Fish Oil (Fish Oil) 1,000 mg DAILY PO Last administered on 12/02/16 09:00; Start 12/02/16 at 09:00 Atorvastatin Calcium (Lipitor) 80 mg HS PO ; Start 12/02/16 at 21:00 Enoxaparin Sodium (Lovenox 40mg Syringe) 40 mg Q24H SQ ; Start 12/02/16 at 00:00 ; Status UNV Temazepam (Restoril) 15 mg PRN QHS PRN PO INSOMNIA Last administered on 00:18; Start 12/02/16 at 00:15 Info (Anti-Coagulation Monitoring By Pharmacy) 1 each PRN DAILY PRN MC SEE COMMENTS Last administered on 12/02/16 08:59; Start 12/02/16 at 09:00 Enoxaparin Sodium (Lovenox 100mg Syringe) 100 mg Q12H SQ Last administered on 12:00; Start 12/02/16 at 12:00; Stop 12/03/16 at 00:01 Active Scripts Active Reported Aspirin 81 Mg Tab.chew 81 Mg PO DAILY Fish Oil 1,000 Mg Capsule ([place]-3 Fatty Acids/Fish Oil) 1 Each Capsule 1 Each PO DAILY Metoprolol Succinate ( Xl ) (Metoprolol Succinate) 25 Mg Tab.er.24h 25 Mg PO DAILY Crestor (Rosuvastatin Calcium) 40 Mg Tablet 1 Tab PO DAILY Lisinopril 5 Mg Tablet 5 Mg PO DAILY Vitals/I & O Vital Sign - Last 24 Hours 12/01/16 12/01/16 12/01/16 12/01/16 15:00 19:15 19:50 23:15 Temp 98.0 97.7 97.6 98.0 97.7 97.6 Pulse 46 51 51 Resp 18 13 15 B/P (MAP) 99/65 (76) 114/65 (81) 102/62 (75) Pulse Ox 98 96 97 O2 Delivery Room Air Room Air Room Air Room Air 12/02/16 12/02/16 12/02/16 12/02/16 02:46 07:00 07:39 09:00 Temp 98.1 98.0 98.1 98.0 Pulse 60 44 43 Resp 16 16 B/P (MAP) 120/68 (85) 113/66 (82) Pulse Ox 92 97 O2 Delivery Room Air Room Air Room Air 12/02/16 12/02/16 09:00 11:00 Temp 98.1 98.1 Pulse 43 62 Resp 18 B/P (MAP) 110/76 (87) Pulse Ox 95 O2 Delivery Room Air Intake and Output 12/01/16 12/01/16 12/02/16 15:00 23:00 07:00 Intake Total 900 ml 407 ml Balance 900 ml 407 ml WILD WILLIS MD Dec 02, 2016 14:23
[2016-12-02 15:00] VITALS: BP 107/66
[2016-12-02 19:05] VITALS: BP 111/75
[2016-12-02] MEDS ORDERED: ATORVASTATIN CALCIUM 40 MG TABLET. PO SCH (21:00)
[2016-12-02 23:00] VITALS: BP 105/65
[2016-12-03] VITALS (11 sets, daily range): BP systolic 111–133; BP diastolic 65–90
[2016-12-03] MEDS ORDERED: IV NORMAL SALINE 1000ML BAG 1,000 ML IV SCH (07:30)
[2016-12-03] MEDS ORDERED: IOHEXOL 300 MG/ML 100ML VIAL. ONE (08:59)
[2016-12-03] MEDS ORDERED: LIDOCAINE 2% 20 ML VIAL. ONE (08:59)
[2016-12-03] MEDS: LISINOPRIL 5 MG TABLET. PO SCH (09:00)
[2016-12-03] MEDS: OMEGA-3 FATTY ACIDS/FISH OIL 1,000 MG CAPSULE. PO SCH (09:00)
[2016-12-03] MEDS: METOPROLOL SUCC 24HR ER 25 MG TAB.ER.24H. PO SCH (09:00)
[2016-12-03] MEDS ORDERED: fentaNYL PF VIAL 100 MCG/2 ML VIAL ONE (09:04)
[2016-12-03] MEDS ORDERED: MIDAZOLAM HCL/PF 5 MG/5 ML VIAL. ONE (09:04)
[2016-12-03] MEDS ORDERED: NITROGLYCERIN 200 MCG/2 ML SYRINGE FOR CATH/VASC LAB. ONE (09:04)
[2016-12-03] MEDS ORDERED: VERAPAMIL 5 MG/2 ML VIAL. ONE (09:04)
[2016-12-03] MEDS ORDERED: HEPARIN for IV BOLUS 10,000 UNIT/10 ML VIAL. ONE (09:04)
[2016-12-03] MEDS: ASPIRIN ENTERIC COATED 81 MG TABLET.DR. PO SCH (09:09)
--- NOTE | 2016-12-03 09:26 | PDOC ---
MODERATE SEDATION ASSESSMENT RISKS/ALTERNATIVES Risks/Alternatives Risks and alternatives of this type of sedation and procedure discussed with: RISK/ALTERNATIVES: Patient H & P ON CHART H & P H & P on chart and reviewed for co-morbid conditions and appropriate labs. H&P ON CHART: Yes STATUS PREG STATUS ASSESSED: N/A MEDS/ALLERGIES REVIEWED Meds/Allergies Reviewed Medications and Allergies including time and route of recently administered narcotics and sedatives. MEDS/ALLERGIES REVIEWED: Yes ASA RATING ASA RATING: II AIRWAY ASSESSMENT Airway Assessment Airway patency, oral function limitations, presence of caps, crowns, dentures, partials, and ability to extend neck assessed. AIRWAY ASSESSMENT: Yes MALLAMPATI SCORE MALLAMPATI SCORE: II PRE-SEDATION ASSESSMENT PRE-SEDATION ASSESSMENT: Yes RICKY PATRICIA MD Dec 03, 2016 09:26
[2016-12-03] MEDS ORDERED: VERAPAMIL 5 MG/2 ML VIAL. IART ONE (10:00)
[2016-12-03] MEDS ORDERED: MIDAZOLAM HCL/PF 5 MG/5 ML VIAL. IV ONE (10:00)
[2016-12-03] MEDS ORDERED: IOHEXOL 300 MG/ML 100ML VIAL. IART ONE (10:00)
[2016-12-03] MEDS ORDERED: NITROGLYCERIN 200 MCG/2 ML SYRINGE FOR CATH/VASC LAB. IART ONE (10:00)
[2016-12-03] MEDS ORDERED: HEPARIN for IV BOLUS 10,000 UNIT/10 ML VIAL. IART ONE (10:00)
[2016-12-03] MEDS ORDERED: LIDOCAINE 2% 20 ML VIAL. IJ ONE (10:00)
[2016-12-03] MEDS ORDERED: CONTRAST GIVEN MC PRN (10:00)
[2016-12-03] MEDS ORDERED: fentaNYL PF VIAL 100 MCG/2 ML VIAL IV ONE (10:00)
[2016-12-03] MEDS ORDERED: IV 1/2 NORMAL SALINE 1,000 ML IV SCH (10:02)
--- NOTE | 2016-12-03 10:35 | CARD ---
APPROVED REPORT Procedure(s) performed: Left heart catheterization, selective coronary angiography and left ventricul ography via right transradial approach INDICATION The indication(s) include : Unstable angina. PROCEDURE NARRATIVE After explaining the risks, benefits and alternative options, informed consent was obtained from aminta ent. Patient was brought to the cardiac [employer] and right wrist was prepped and draped in the usual fashion after confirming a positive modified Mark's test. Arterial access was obtained in the [facility] t radial artery and a 6 Swazi sheath was inserted. 6 Swazi Jose Roberto catheter was used to perform michael ective angiography of the left and right coronary arteries. 6 Swazi pigtail catheter was used to pe rform left ventriculography. Patient tolerated the procedure well. Hemostasis was achieved using TR band. There were no immediate complications. The following findings were noted. FINDINGS 1. Hemodynamics: Left ventricular end-diastolic pressure of 7 mmHg. No pullback gradient across the aortic valve. 2. Left ventriculography: Normal left ventricle systolic function with ejection fraction estimated at 55%. No significant mitral regurgitation seen. 3. Coronary angiography: a. The left main coronary artery arose from the left sinus of Valsalva, gave rise to the left anteri or descending and left circumflex arteries and did not show any significant stenosis. b. The left anterior descending artery showed widely patent stent in the midsegment. c. The left circumflex artery did not show any significant stenosis. d. The right coronary artery was a large and dominant vessel arising from the right sinus of Valsalv a that did not show any significant stenosis. Conclusion 1. No significant coronary artery disease with widely patent previously placed stent in the left ant erior descending artery. 2. Normal left ventricle systolic function with ejection fraction estimated at 55%. Recommendations Medical Therapy
[2016-12-03] MEDS ORDERED: ACETAMINOPHEN 325 MG TABLET. PO PRN (11:30)
[2016-12-03] MEDS ORDERED: METO25TA9 PO (13:29)
--- NOTE | 2016-12-03 13:38 | PDOC3 ---
DISCHARGE SUMMARY DISCHARGE SUMMARY: Discharge summary: Date of admission 12/01/16. Discharge 12/03/16. Admit diagnosis: Chest pain Discharge diagnosis: Bradycardia: Hypertension Coronary artery disease Hyperlipidemia History present hospital course: Patient is a 56-year-old male with remote history of PA congestive heart failure and CAD. Patient had a stent placement has been stable for several years. Patient had new onset chest tightness that did not induce shortness of breath diaphoresis, radiation or nausea vomiting. Patient's ER evaluation had negative troponins and EKG. Due to patient's new-onset symptoms and ongoing bradycardia cardiology elected to proceed directly to cardiac catheterization. This was accomplished with subclavian vein approach and patent coronary arteries were found. Patient tolerated procedure well and had no postprocedure complications. After appropriate time patient will be discharged to home to follow-up with personal administrative aide and family practice doctor in the next 2 weeks. Return of hospital recurrent symptoms occur with shortness of breath or diaphoresis. Home medications are listed in [facility] beta tawanna dose will be decreased to 12.5 daily. KANDIS BOLAÑOS MD Dec 03, 2016 13:37
== END 2016-12-03 17:20 | disposition home or self-care (01) | DRG 287 ==
LOC: ER 09:12 → 2 SOUTH 10:38
PROVIDERS: ADMIT Family Medicine; ATTEND Family Medicine
PROC: 4A023N7 Measurement of Cardiac Sampling and Pressure, Left Heart, Percutaneous Approach (ICD-10-PCS; principal; 2016-12-03)
PROC: B2111ZZ Fluoroscopy of Multiple Coronary Arteries using Low Osmolar Contrast (ICD-10-PCS; 2016-12-03)
PROC: B2151ZZ Fluoroscopy of Left Heart using Low Osmolar Contrast (ICD-10-PCS; 2016-12-03)
DX: R07.89 Other chest pain (principal); R00.1 Bradycardia, unspecified; E78.5 Hyperlipidemia, unspecified; I11.0 Hypertensive heart disease with heart failure; I50.9 Heart failure, unspecified; I25.10 Atherosclerotic heart disease of native coronary artery without angina pectoris; I25.2 Old myocardial infarction; Z80.42 Family history of malignant neoplasm of prostate; Z82.49 Family history of ischemic heart disease and other diseases of the circulatory system; Z83.3 Family history of diabetes mellitus; Z95.5 Presence of coronary angioplasty implant and graft
CPT/HCPCS: 36415; 71010; 80053; 80061; 83735; 83880; 84484; 85027; 85520; 85610; 85730; 93005; 93458; 99152; 99153; A6539; C1769; C1892; J1644; J1650; J2001; J2250; J3010; J3490; Q9967; 99285-25